=== PATIENT | male | born 1925 | race Caucasian/White ===

== ENCOUNTER → 2016-07-13 | Outpatient (CLI) | payer MEDICARE, BC ==
[~2016-07-13] MED LIST: CALC600T34 PO; COUM3TAB PO; COUM5TAB PO; HYDR-3580 PO; NIAC500 PO; WARF2.5 PO; ZOCO10TA PO
[2016-07-13 11:47] LABS: AUTOMATED NEUTROPHIL # 3.8 TH/MM3 (1.8-7.7); BASOPHIL # 0.1 TH/MM3 (0-0.2); BASOPHIL % 0.9 % (0.0-2.0); EOSINOPHIL # 0.2 TH/MM3 (0-0.4); HEMATOCRIT 46.2 % (39.0-51.0); HEMO FLAGS DIFF FINAL; LYMPH % 27.7 % (9.0-44.0); LYMPHOCYTE # 1.8 TH/MM3 (1.0-4.8); MEAN CELL VOLUME 97.3 FL (80.0-100.0); MEAN CORPUSCULAR HEMOGLOBIN 32.5 PG (27.0-34.0); MEAN CORPUSCULAR HGB CONC 33.4 % (32.0-36.0); MONO % 10.1 % (0.0-8.0); NEUT % 58.3 % (16.0-70.0); PLATELET COUNT 170 TH/MM3 (150-450); RED BLOOD COUNT 4.75 MIL/MM3 (4.50-5.90); RED CELL DISTRIBUTION WIDTH 14.6 % (11.6-17.2); WHITE BLOOD COUNT 6.5 TH/MM3 (4.0-11.0)
[2016-07-13 12:13] LABS: ALKALINE PHOSPHATASE 90 U/L (45-117); ALT (GPT) 38 U/L (12-78); ANION GAP 5 MEQ/L (5-15); AST (GOT) 32 U/L (15-37); BICARBONATE 30.1 MEQ/L (21.0-32.0); BLOOD UREA NITROGEN 17 MG/DL (7-18); CHLORIDE 107 MEQ/L (98-107); GLOMERULAR FILTRATION RATE 45 ML/MIN (>89); GLUCOSE,FASTING 101 MG/DL (74-99); HDL CHOLESTEROL 40.3 MG/DL (40.0-60.0); LDL CHOLESTEROL 84 MG/DL (0-99); POTASSIUM 4.9 MEQ/L (3.5-5.1); SODIUM (NA) 142 MEQ/L (136-145); TOTAL BILIRUBIN ADULT 0.3 MG/DL (0.2-1.0)
== END ==
LOC: ELAB 08:31
PROVIDERS: ATTEND Family Medicine
DX: J43.1 Panlobular emphysema (principal); E78.2 Mixed hyperlipidemia; G60.9 Hereditary and idiopathic neuropathy, unspecified; N40.0 Benign prostatic hyperplasia without lower urinary tract symptoms
CPT/HCPCS: 36415; 80053; 80061; 85025

== ENCOUNTER → 2017-04-08 | Outpatient (CLI) | payer MEDICARE, BC ==
--- NOTE | 2017-04-14 09:36 | RSPPFT ---
DATE OF PROCEDURE: 04/08/17 COMMENTS: VOLUMES DYNAMIC: FVC and FEV1 normal. STATIC: FRC, RV and TLC normal. FLOWS: FEV1% and FEF 25-75 normal. DIFFUSION: Normal. FLOW VOLUME LOOP: Normal configuration. IMPRESSION: Normal pulmonary functions with no significant obstruction or restriction.
== END ==
LOC: HRSP 10:46
PROVIDERS: ATTEND Internal Medicine
DX: J44.9 Chronic obstructive pulmonary disease, unspecified (principal)
CPT/HCPCS: 94060; 94618; 94726; 94729

== ENCOUNTER → 2017-06-13 | Outpatient (CLI) | payer MEDICARE, BC ==
[~2017-06-13] MED LIST changes: +COUM2.5T PO
[2017-06-13 10:57] LABS: HEMATOCRIT 47.5 % (39.0-51.0); HEMOGLOBIN 15.8 GM/DL (13.0-17.0); MEAN CELL VOLUME 96.6 FL (80.0-100.0); MEAN CORPUSCULAR HEMOGLOBIN 32.2 PG (27.0-34.0); MEAN CORPUSCULAR HGB CONC 33.4 % (32.0-36.0); PLATELET COUNT 170 TH/MM3 (150-450); RED BLOOD COUNT 4.91 MIL/MM3 (4.50-5.90); RED CELL DISTRIBUTION WIDTH 14.6 % (11.6-17.2); WHITE BLOOD COUNT 6.3 TH/MM3 (4.0-11.0)
[2017-06-13 11:07] LABS: INTERNATIONAL NORMALIZED RATIO 1.1 RATIO; PROTHROMBIN TIME - PATIENT 11.1 SEC (9.8-11.6)
[2017-06-13 11:28] LABS: BICARBONATE 29.2 MEQ/L (21.0-32.0); CALCIUM 8.9 MG/DL (8.5-10.1); CREATININE 1.23 MG/DL (0.60-1.30)
--- NOTE | 2017-06-13 15:32 | EKG ---
Date Performed: 06/13/2017 Time Performed: 10:21:54 PTAGE: 89 years EKG: SINUS BRADYCARDIA Since the previous tracing, no significant change noted BORDERLINE ECG PREVIOUS TRACING : 01/30/07 @ 1521 DOCTOR: Kendal Duffy Interpretating Date/Time 06/13/2017 15:24:20
== END ==
LOC: CPRE 09:55
PROVIDERS: ATTEND Internal Medicine
DX: Z01.810 Encounter for preprocedural cardiovascular examination (principal); Z01.812 Encounter for preprocedural laboratory examination; R91.1 Solitary pulmonary nodule; R94.31 Abnormal electrocardiogram [ECG] [EKG]
CPT/HCPCS: 36415; 80048; 85027; 85610; 85730; 93005

== ENCOUNTER 2017-06-14 11:33 | Day surgery (SDC) | payer MEDICARE, BC ==
--- NOTE | 2017-06-09 15:55 | MB ---
cc: Jo-Ann Badillo MD, James E MD DATE: 06/14/2017 HISTORY: Mr. Zuñiga is an 89-year-old white male who presented to me in March with hemoptysis. He has been a smoker his entire adult life about [address] scan was done which revealed a left upper lobe nodular density and a PET scan was suspicious for malignancy. We have discussed bronchoscopy at that time, but his had a serious neurologic problem and they had to go to [place] to have that treated. He returned today for a follow-up visit and is willing now to proceed with further diagnostic studies. He has almost stopped smoking, he is down to an occasional cigarette. He has had no recurrence of hemoptysis. No unusual cough, no chest pain. Pulmonary functions were done in April and were actually normal; no evidence of significant COPD. He did have a prior history of pulmonary embolism. He had a filter placed at that time in 2009 and has been on warfarin since then. 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 ALLERGIES: FORMALDEHYDE AND NEOMYCIN. FAMILY HISTORY: Heart disease positive in father. Mother of cancer; she was in her 70s. He has a sister alive at 90 and a daughter who committed suicide. SOCIAL HISTORY: , living with his of 63 years. 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 Uses no alcohol at present. They have a dog at home. REVIEW OF SYSTEMS: No headache or visual change. No presyncopal symptoms. No GI symptoms, particularly reflux or abdominal pain. No musculoskeletal complaints. No chronic edema. PHYSICAL EXAMINATION: VITAL SIGNS: 97 degrees, 130/70, pulse 64, RR 18, saturation 98% on room air. HEENT: Pharynx is clear. NECK: No adenopathy in the neck. CHEST: Somewhat diminished but clear. No wheezes or rales. No congestion. HEART: No harsh murmur. No audible S3. ABDOMEN: Soft. EXTREMITIES: No peripheral edema or cyanosis. ASSESSMENT AND PLAN: Mr. Zuñiga had a left upper lobe nodule with a positive PET scan in March. I have requested a follow-up CT to reassess now after 2 months and proceed with a diagnostic bronchoscopy which he is agreeable to. We have discussed the procedure in simple terms so that he understands what it involves. Also discussed potential complications including although not limited to anesthetic complications, pneumothorax or bleeding. He also understands that the procedure may not be definitive in terms of establishing a diagnosis. Further diagnostic and/or therapeutic intervention will depend on this follow-up scan and the subsequent bronchoscopy. R. MD RE Croft/CHANNING , 03:05 PM , 04:38 PM
[~2017-06-14] VITALS: Ht 167.6 cm; Wt 79.1 kg
[~2017-06-14 11:33] MED LIST changes: -CALC600T34 PO; -COUM3TAB PO; -HYDR-3580 PO; -NIAC500 PO; -WARF2.5 PO; -ZOCO10TA PO
[2017-06-14 11:54] VITALS: BP 170/84; PULSE 52; RESP 18; TEMP 97.8; O2SAT 98
[2017-06-14] MEDS ORDERED: SODIUM CHLOR 0.45% 1000 ML INJ 1,000 ML IV SCH (12:00)
[2017-06-14] MEDS ORDERED: CHLORHEXIDINE GLUCONATE 2 % 1 PACK (2 CLOTHS) TOPICAL PRN (12:15)
[2017-06-14] MEDS ORDERED: POVIDONE IODINE 5% (ANTISEPSIS KIT) 4 APPLICATIONS EACH NARE PRN (12:15)
[2017-06-14] MEDS ORDERED: METOPROLOL TARTRATE 25 MG TAB PO PRN (12:15)
[2017-06-14] MEDS ORDERED: RESP: LIDOCAINE HCL 4% PF 5 ML NEB NEB SCH (12:15)
[2017-06-14] MEDS ORDERED: RESP: ALBUTEROL 2.5 MG/3 ML NEB (SCH) INH (12:15)
[2017-06-14] MEDS ORDERED: LACTATED RINGER'S 1000 ML IV PRN (12:15)
[2017-06-14] MEDS ORDERED: SODIUM CHLORID 0.9% 500 ML IV PRN (12:15)
[2017-06-14] MEDS ORDERED: RESP: LIDOCAINE HCL 4% PF 5 ML NEB ONE (13:12)
[2017-06-14] MEDS ORDERED: RESP: ALBUTEROL CONC 2.5 MG/0.5 ML NEB ONE (13:12)
[2017-06-14] MEDS ORDERED: MORPHINE SULFATE 4 MG/ML INJ ONE (13:29)
--- NOTE | 2017-06-14 13:31 | RADRPT ---
EXAM DATE/TIME: 06/14/2017 12:41 [facility] COMPARISON: No previous studies available for comparison. INDICATIONS : Left lung mass, for navigational bronchoscopy RADIATION DOSE: 9.12 CTDIvol (mGy) MEDICAL HISTORY : Carcinoma, prostate. Skin cancer, Hard of hearing, Hemoptysis SURGICAL HISTORY : None. ENCOUNTER: Initial ACUITY: 1 day PAIN SCALE: 0/10 LOCATION: chest TECHNIQUE: Volumetric scanning of the chest was performed using inspiration and expiration protocols. The study is performed using fiduciary markers for virtual bronchoscopy. Using automated exposure control and adjustment of the mA and/or kV according to patient size, radiation dose was kept as low as reasonabl y achievable to obtain optimal diagnostic quality images. DICOM format image data is available elec tronically for review and comparison. Follow-up recommendations for detected pulmonary nodules are based at a minimum on nodule size and pa tient risk factors according to Fleischner Society Guidelines. FINDINGS: There is evidence of a mass-like lesion within the posterior aspect of the left upper lobe measuring 3.7 x 1.9 cm raising possibility of bronchogenic carcinoma. There is an ill-defined mass-like density within the posterior aspect of the left lower lobe measuring 1.5 cm in greatest dimension. There is also well-defined nodule within the right upper lobe measuring 0.8 cm. There is focal ground-glass de nsity within the left upper lobe measuring 1.7 cm in size. Prevascular mediastinal lymphadenopathy is noted with the largest lymph node measuring 2.9 x 1.8 cm. Coronary artery calcifications are noted. Fibrotic scarring is noted within the right posterior lung base. Tiny calcified granuloma is noted wi thin the posterior aspect of the right apex. There is a 1.3 cm low-density lesion within the right lo be of liver which is indeterminate on this unenhanced examination. MRI of the abdomen with contrast w ould be helpful for further characterization of this finding if clinically indicated. There is a larg e right renal cyst measuring 8.6 cm. There is a 1.6 x 1.1 cm left adrenal nodule which is indetermina te. CONCLUSION: 1. Mass-like lesion within the posterior aspect of the left upper lobe measuring 3.7 x 1.9 cm raising the possibility of bronchogenic carcinoma. PET/CT scan would be helpful for further evaluation if no t already performed. 2. Ill-defined mass-like density within the posterior aspect of the left lower lobe measuring 1.5 cm in greatest dimension. There is also well-defined nodule within the right upper lobe measuring 0.8 cm . There is focal ground-glass density within the left upper lobe measuring 1.7 cm in size. 3. Prevascular mediastinal lymphadenopathy is noted with the largest lymph node measuring 2.9 x 1.8 c m. 4. 1.3 cm low-density lesion within the right lobe of liver which is indeterminate on this unenhanced examination. MRI of the abdomen with contrast would be helpful for further characterization of this finding if clinically indicated. 5. 1.6 x 1.1 cm adrenal nodule which is indeterminate. 6. Coronary artery calcifications. 7. 8.6 cm right renal cyst. Carmine Nina MD on June 14, 2017 at 13:18 Board Certified Radiologist. This report was verified electronically.
[2017-06-14] MEDS ORDERED: DO NOT ADM ANY ANTICOAGULANT DRUGS PRN (15:10)
[2017-06-14] MEDS ORDERED: RESP: ALBUTEROL 2.5 MG/IPRATROPIUM 0.5 MG NEB (PRN) NEB (15:15)
[2017-06-14] MEDS ORDERED: *RESP: ALBUTEROL 2.5 MG/3 ML NEB (PRN) PERIprocedural Use ONLY NEB ONE (15:18)
--- NOTE | 2017-06-14 15:22 | MR ---
cc: Jo-Ann Badillo MD, James E MD DATE: 06/14/2017 PROCEDURE: Bronchoscopy. INDICATIONS: Persistent left upper lobe nodular infiltrate, possible malignancy. DESCRIPTION OF THE PROCEDURE: After informed consent was obtained, the patient underwent diagnostic bronchoscopy utilizing navigational technology as well as ultrasound technology for lymph node aspiration. Evaluation and initial inspection of the mid to distal trachea was normal other than some scattered secretions. Examination of the right main stem bronchus, right upper, middle, and lower lobes was entirely unremarkable without endobronchial pathology. Examination of the left main stem bronchus, left upper lobe and lower lobes was initially entirely unremarkable, no endobronchial pathology. Utilizing navigational technology, the lesion was then identified in an apical posterior segment of the left upper lobe. Once it was identified, washings, cytology brushings and several transbronchial biopsies were obtained again using the navigational technology. There was minimal bleeding. The patient then had ultrasound evaluation of the left paratracheal lymph node area and the subcarinal area. Two lymph node biopsies were obtained and submitted for cytology. A second specimen was positive for lymphocytes being present. Specimen submitted from left lymph node station 4 and the subcarinal region 7. Washings were submitted for cytology and cultures. He tolerated the procedure well. A chest x-ray is pending at this time. He is being transferred to Recovery. Jo-Ann Badillo MD RSW/CHANNING , 03:07 PM , 03:22 PM
[2017-06-14] MEDS ORDERED: RESP: RACEPINEPHRINE 2.25% 0.5 ML NEB ONE (15:27)
[2017-06-14] MEDS ORDERED: DEXAMETHASONE SOD PHOS 4 MG/ML VIAL ONE (15:28)
[2017-06-14] MEDS ORDERED: GLYCOPYRROLATE 0.2 MG/ML VIAL ONE (15:59)
[2017-06-14] MEDS ORDERED: GLYCOPYRROLATE 0.2 MG/ML VIAL IV PUSH ONE (16:05)
--- NOTE | 2017-06-14 16:17 | RADRPT ---
EXAM DATE/TIME: 06/14/2017 15:43 [facility] COMPARISON: CT THORAX W/O CONTRAST INSP/EXPIR, NAVIGATION, June 14, 2017, 12:41. INDICATIONS : Post bronchoscope. MEDICAL HISTORY : Carcinoma, prostate. Skin cancer. Hard of hearing. Hemoptysis. SURGICAL HISTORY : None. ENCOUNTER: Initial ACUITY: 1 day PAIN SCORE: Non-responsive. LOCATION: Bilateral chest FINDINGS: Portable AP view of the chest demonstrates a normal-sized cardiac silhouette with calcification of ao rta. There is mild airspace opacity in the left upper lobe. No pleural effusion or pneumothorax is id entified. The bones and soft tissues demonstrate no acute finding. CONCLUSION: 1. No pneumothorax following bronchoscopy. 2. Stable airspace opacity in the left upper lobe. Chester Shook MD on June 14, 2017 at 16:13 Board Certified Radiologist. This report was verified electronically.
[2017-06-14 16:30] VITALS: BP 145/82; PULSE 71; RESP 18; O2SAT 91
[2017-06-14 17:01] VITALS: BP 133/71; PULSE 64; RESP 18; O2SAT 95
== END 2017-06-14 17:22 | disposition home or self-care (01) ==
LOC: HROP 11:33 → HRIP 11:34 → HROP 17:22
PROVIDERS: ATTEND Internal Medicine
DX: R91.1 Solitary pulmonary nodule (principal); R91.8 Other nonspecific abnormal finding of lung field; R59.0 Localized enlarged lymph nodes; N28.1 Cyst of kidney, acquired; Z87.891 Personal history of nicotine dependence; Z86.711 Personal history of pulmonary embolism; Z85.828 Personal history of other malignant neoplasm of skin; Z85.46 Personal history of malignant neoplasm of prostate
CPT/HCPCS: 00520; 31625; 31627; 31652; 71045; 71250; 87015; 87070; 87102; 87116; 87205; 87206; 88112; 88173; 88305; 94640; 94664; J1100; J2270; J7611; J7613; 31653

== ENCOUNTER 2017-06-27 06:22 | Day surgery (SDC) | payer MEDICARE, BC ==
[~2017-06-27] VITALS: Ht 168.9 cm; Wt 76.4 kg
[2017-06-27] VITALS (8 sets, daily range): BP systolic 118–187; BP diastolic 54–96; PULSE 48–59; RESP 18–20; TEMP 97.4–97.8; O2SAT 92–97
[2017-06-27] MEDS ORDERED: SODIUM CHLOR 0.9% 1000 ML IV SCH (07:00)
[2017-06-27 07:35] LABS: PROTHROMBIN TIME - PATIENT 10.6 SEC (9.8-11.6)
[2017-06-27] MEDS ORDERED: MIDAZOLAM HCL 2 MG/2 ML VIAL ONE (08:39)
[2017-06-27] MEDS ORDERED: oxyCODONE/ACETAMINOPHEN 5 MG/325 MG TAB PO PRN (09:15)
[2017-06-27] MEDS ORDERED: LIDOCAINE HCL 1% 10 ML VIAL OTHER ONE (09:18)
--- NOTE | 2017-06-27 09:26 | RADRPT ---
EXAM DATE/TIME: 06/27/2017 09:14 [facility] COMPARISON: CT NEEDLE BIOPSY LUNG, LEFT, June 27, 2017, 8:47. INDICATIONS : Post left side biopsy MEDICAL HISTORY : Carcinoma, prostatic. skin cancer, hard of hearing, hemoptsis SURGICAL HISTORY : None. ENCOUNTER: Initial ACUITY: 1 day PAIN SCORE: 0/10 LOCATION: Bilateral chest FINDINGS: The cardiac silhouette is enlarged in transverse diameter. There is no evidence of pneumothorax. The lungs are free of acute parenchymal opacity. No effusions are identified. CONCLUSION: 1. There is no evidence of pneumothorax. Lennox Cam MD on June 27, 2017 at 9:23 Board Certified Radiologist. This report was verified electronically.
--- NOTE | 2017-06-27 09:35 | RADRPT ---
EXAM DATE/TIME: 06/27/2017 08:47 [facility] COMPARISON: No previous studies available for comparison. INDICATIONS : Left lung mass. SEDATION TIME: 30 minutes BIOPSY SITE: Left MEDICATION(S): 1.) 1.5 mg midazolam (Versed) IV 2.) 75 mcg fentanyl (Sublimaze) IV DEVICE(S): 1.) 20 gauge Temno core biopsy needle MEDICAL HISTORY : Melanoma SURGICAL HISTORY : Appendectomy. ENCOUNTER: Initial ACUITY: 1 day PAIN SCORE: 0/10 LOCATION: Left A total of one core specimen(s) were obtained and sent to the laboratory for pathologic evaluation. PROCEDURE: 1. CT guided lung biopsy. 2. Conscious sedation with continuous EKG and oximetry monitoring. 3. EKG and oximetry remained stable throughout the procedure. Prior to the procedure informed consent was obtained. Any appropriate prior imaging studies were rev iewed. Using automated exposure control and adjustment of the mA and/or kV according to patient size, radiation dose was kept as low as reasonably achievable to obtain optimal diagnostic quality images. DICOM format image data is available electronically for review and comparison. The site was prepped in a sterile fashion. Full sterile technique was used, including cap, mask, emma rile gloves and gown and a large sterile sheet. Hand hygiene and 2% chlorhexidine and/or betadine/al cohol prep was utilized per protocol for cutaneous antisepsis. The skin and subcutaneous tissues wer e infiltrated with local anesthetic solution. With CT guidance the previously identified target was localized. Biopsy was performed using the presc ribed needle as above. Adequate hemostasis was obtained with compression at the puncture site. Follow-up CT scan reveals no pneumothorax. Conscious sedation was performed with the prescribed dosages and duration as above in the presence of an independent trained radiology nurse to assist in the monitoring of the patient. EKG and oximetry remained stable throughout the procedure. The patient tolerated the procedure well and there were no complications. The patient was sent to Radiology Outpatient Unit in stable condition. CONCLUSION: Uncomplicated CT guided biopsy. Carmine Nina MD on June 27, 2017 at 9:32 Board Certified Radiologist. This report was verified electronically.
--- NOTE | 2017-06-27 11:32 | RADRPT ---
EXAM DATE/TIME: 06/27/2017 11:04 [facility] COMPARISON: CHEST EXPIRATION ONLY, June 27, 2017, 9:14. INDICATIONS : Post left side biopsy. MEDICAL HISTORY : Carcinoma, prostatic. SURGICAL HISTORY : None. ENCOUNTER: Subsequent ACUITY: 1 day PAIN SCORE: 0/10 LOCATION: Bilateral chest FINDINGS: A single frontal expiratory view of the chest was performed. The lungs are symmetrically aerated and clear. No evidence of pneumothorax. Mediastinal structures are in the midline. The cardio-mediastinal contours and bronchopulmonary markings are unremarkable for an expiratory exam . Osseous structures are intact. CONCLUSION: No evidence of pneumothorax. Carmine Nina MD on June 27, 2017 at 11:29 Board Certified Radiologist. This report was verified electronically.
== END 2017-06-27 13:06 | disposition home or self-care (01) ==
LOC: HRAD 06:22 → HRIP 06:26 → HRAD 13:06
PROVIDERS: ATTEND Internal Medicine
DX: R91.8 Other nonspecific abnormal finding of lung field (principal); R04.2 Hemoptysis; F17.210 Nicotine dependence, cigarettes, uncomplicated; Z85.820 Personal history of malignant melanoma of skin; Z79.01 Long term (current) use of anticoagulants
CPT/HCPCS: 32405; 71045; 77012; 85610; 85730; 88305; 88341; 88342; 99152; 99153; J2250; J3010; J7030

== ENCOUNTER 2017-07-28 07:26 | Day surgery (SDC) | payer MEDICARE, BC ==
[~2017-07-28] VITALS: Ht 168.9 cm; Wt 75.9 kg
[2017-07-28] MEDS ORDERED: VANCOMYCIN 1000 MG/NS 250 ML - implanted port/tunneled catheter IV SCH ×2 (08:00)
[2017-07-28] MEDS ORDERED: ceFAZolin 2 GM PREMIX 50 ML - implanted port/tunneled catheter insertion IV SCH (08:00)
[2017-07-28] MEDS ORDERED: SODIUM CHLORIDE 0.9% 1000 ML IV SCH (08:00)
[2017-07-28] MEDS ORDERED: POVIDONE IODINE 5% (ANTISEPSIS KIT) 4 APPLICATIONS EACH NARE SCH (08:00)
[2017-07-28] MEDS ORDERED: CHLORHEXIDINE GLUCONATE 2 % 1 PACK (2 CLOTHS) TOPICAL SCH (08:00)
[2017-07-28 08:02] VITALS: BP 157/75; PULSE 53; RESP 20; TEMP 97.7; O2SAT 95
[2017-07-28 08:28] LABS: AUTOMATED NEUTROPHIL # 3.8 TH/MM3 (1.8-7.7); BASOPHIL # 0.1 TH/MM3 (0-0.2); BASOPHIL % 0.8 % (0.0-2.0); EOSINOPHIL # 0.2 TH/MM3 (0-0.4); EOSINOPHIL % 2.4 % (0.0-4.0); HEMATOCRIT 45.2 % (39.0-51.0); HEMOGLOBIN 14.9 GM/DL (13.0-17.0); LYMPH % 23.3 % (9.0-44.0); LYMPHOCYTE # 1.5 TH/MM3 (1.0-4.8); MEAN CELL VOLUME 95.9 FL (80.0-100.0); MEAN CORPUSCULAR HEMOGLOBIN 31.6 PG (27.0-34.0); MEAN PLATELET VOLUME 9.2 FL (7.0-11.0); MONO % 13.3 % (0.0-8.0); MONOCYTE # 0.8 TH/MM3 (0-0.9); NEUT % 60.2 % (16.0-70.0); PLATELET COUNT 151 TH/MM3 (150-450); RED BLOOD COUNT 4.71 MIL/MM3 (4.50-5.90); RED CELL DISTRIBUTION WIDTH 14.2 % (11.6-17.2); WHITE BLOOD COUNT 6.3 TH/MM3 (4.0-11.0)
[2017-07-28 08:39] LABS: INTERNATIONAL NORMALIZED RATIO 1.1 RATIO; PROTHROMBIN TIME - PATIENT 10.8 SEC (9.8-11.6)
[2017-07-28] MEDS ORDERED: MIDAZOLAM HCL 2 MG/2 ML VIAL ONE (09:09)
[2017-07-28] MEDS ORDERED: LIDOCAINE 1%/EPINEPHrine 1:100,000 SOLN 20 ML VIAL ONE (09:12)
[2017-07-28] MEDS ORDERED: SODIUM CHLORIDE 0.9% FLUSH 10 ML FLUSH IVF PRN (09:45)
--- NOTE | 2017-07-28 09:45 | PD.RAD ---
Post Procedure Progress Note Pre Procedure Diagnosis: (1) Lung cancer Post Procedure Diagnosis: (1) Lung cancer Procedure Date: July 28, 2017 Supervising Radiologist: Bryson Christy Proceduralist/Assist: Guy Mae RT(R), RT Frances(R)(CV) Anesthesia: Local, Analgesia, Conscious Sedation Plan of Activity Patient to Unit: [facility] Patient Condition: Good See PACS Report for procedural detail/treatment Central Venous Access Device Procedure 1 Right Internal Jugular Infusaport Placement single lumen Urdu: 8 Bryson Christy MD July 28, 2017 09:44
[2017-07-28 09:55] VITALS: BP 127/68; PULSE 59; RESP 18; TEMP 97.6; O2SAT 95
[2017-07-28 10:10] VITALS: BP 139/73; PULSE 58; RESP 18; O2SAT 95
--- NOTE | 2017-07-28 10:32 | RADRPT ---
EXAM DATE: 07/28/2017 10:10 AM EDT AGE/SEX: 89 years / Male INDICATIONS: Patient presents with left lung mass in need of port placement for chemotherapy treatme nt. CLINICAL DATA: This is the patient's initial encounter. Patient reports that signs and symptoms have been present for 3 weeks and indicates a pain score of 0/10. MEDICAL/SURGICAL HISTORY: . DVT COPD Hemorrhoids . Appendectomy Right hip surgery Colonoscopy Right inguinal hernia surgery COMPARISON: No prior [place] exams available for comparison. FLUORO TIME (min): 0.76 IMAGE SERIES: 1 SEDATION TIME (min): 10 MEDICATION(S): 1.5 mg midazolam (Versed) IV 75mcg fentanyl (Sublimaze) IV Vancomycin within 2 hrs of procedure, Ancef (or alternative) within 1 hr of procedure. DEVICE(S): Right 8fr BioFlo port . . PROCEDURE : 1. Continuous pulse oximetry and EKG monitoring. 2. Intravenous conscious sedation. 3. Ultrasound guidance for venous access. 4. Fluoroscopic guided implantable central venous port placement. The patient was placed supine. The neck was prepped in sterile fashion. Full sterile technique was u sed, including cap, mask, sterile gloves and gown, and a large sterile sheet. Hand hygiene and 2% ch lorhexidine Betadine was utilized per protocol for cutaneous antisepsis with appropriate dry time for site. Sterile gel and sterile probe cover were utilized for ultrasound guidance. The skin and sub cutaneous tissues were infiltrated with local anesthetic solution. Under direct ultrasound guidance, central venous access was accomplished in the targeted vessel. The ultrasound images depicting access guidance were stored and saved to PACS for permanent record. A s ubcutaneous pocket was created using blunt dissection. The port was introduced to the pocket. The c atheter tubing was fed through a subcutaneous tunnel to the venotomy site. The catheter tubing was c ut to a suitable length and then was introduced through a valved Peel-Away sheath and positioned with catheter tubing tip at the cavo-atrial junction level. The pocket incision was closed with subcutic ular Vicryl suture. Steri-Strips were applied. The port was flushed and locked with heparin solutio n per protocol. Sterile dressing was applied to the site. The patient tolerated the procedure well. Conscious sedation was performed with the prescribed dosages and duration as above in the presence of an independent trained radiology nurse to assist in the monitoring of the patient. EKG and oximetry remained stable throughout the procedure. The patient tolerated the procedure well and there were no complications. The patient was sent to post anesthesia recovery in stable condition. CONCLUSION: 1. Uncomplicated ultrasound and fluoroscopic guided implanted central venous port catheter placement as described in detail above. An 8 Dutch Power port was placed. Electronically signed by: Bryson Christy MD 07/28/2017 10:31 AM EDT
[2017-07-28 10:40] VITALS: BP 128/70; PULSE 60; RESP 18; O2SAT 93
[2017-07-28 11:20] VITALS: BP 110/56; PULSE 64; RESP 18; O2SAT 92
== END 2017-07-28 12:00 | disposition home or self-care (01) ==
LOC: HROP 07:26 → HRIP 07:29 → HROP 12:00
PROVIDERS: ATTEND Internal Medicine Hematology & Oncology
DX: C34.90 Malignant neoplasm of unspecified part of unspecified bronchus or lung (principal); Z45.2 Encounter for adjustment and management of vascular access device; Z79.01 Long term (current) use of anticoagulants
CPT/HCPCS: 36561; 76937; 77001; 85025; 85610; 85730; 99152; J0690; J1642; J2250; J3010; J3370; J7030; J7050; C1788